=== PATIENT | male | born 1945 | race Caucasian/White ===

== ENCOUNTER 2022-03-22 08:14 | Day surgery (SDC) | payer MEDICARE ==
[2022-03-22] MEDS ORDERED: fentaNYL 100 MCG/2 ML SDV ONE (08:38)
[2022-03-22] MEDS ORDERED: Propofol 200 MG/20 ML SDV ONE (08:38)
[2022-03-22] MEDS ORDERED: Midazolam 1 MG/ML 2 ML SDV ONE (08:38)
[2022-03-22] MEDS ORDERED: Lactated Ringers 1,000 ML IV SCH (08:45)
[2022-03-22 12:40] VITALS: BP 112/64; PULSE 61
== END 2022-03-22 12:49 | disposition home or self-care (01) ==
LOC: JP.SDS 08:14
PROVIDERS: ATTEND Surgery
DX: Z12.11 Encounter for screening for malignant neoplasm of colon (principal); D12.2 Benign neoplasm of ascending colon; K57.30 Diverticulosis of large intestine without perforation or abscess without bleeding; K44.9 Diaphragmatic hernia without obstruction or gangrene; I12.9 Hypertensive chronic kidney disease with stage 1 through stage 4 chronic kidney disease, or unspecified chronic kidney disease; N18.30 Chronic kidney disease, stage 3 unspecified; E78.5 Hyperlipidemia, unspecified; M10.9 Gout, unspecified; Z88.8 Allergy status to other drugs, medicaments and biological substances; Z88.0 Allergy status to penicillin
CPT/HCPCS: 43239; 45380; 88305; J2250; J2704; J3010; J7120